=== PATIENT | male | born 1955 | race Caucasian/White ===

== ENCOUNTER 2025-03-20 08:45 | Day surgery (SDC) | payer MEDICARE, MEDICAID, SELFPAY ==
[2025-03-20] VITALS (9 sets, daily range): BP systolic 102–161; BP diastolic 66–88; PULSE 73–78; RESP 16–18; TEMP 36.1–36.3; O2SAT 92–98; BMI 25.9
[2025-03-20] MEDS: Lactated Ringers 1,000 ML 15 ML IV (09:00)
[2025-03-20 09:40] LABS: Bedside Glucose 168 mg/dL (74-106)
--- NOTE | 2025-03-20 09:40 | PCM.HP.STD ---
HPI - General General Date of Admission: 03/20/25 Date of Service: 03/20/25 Chief Complaint: Black stools and need for screening colonoscopy HPI Narrative MARY RIZZO, is a 69 M who presents with the Chief Complaint: black stools and need for screening colonoscopy. Pt resides in a SNF and is brought in with his aide today. He is an unreliable historian and his aide does not know much about his past medical history. Pt tells me that he has black stools. Pt endorses abdominal pain, n/v, and heartburn. His last colonoscopy was in 2012. [facility] Medical History Schizophrenia Dementia Alcohol use Insulin dependent diabetes mellitus Diabetes Anemia Hepatitis TIA (transient ischemic attack) Former smoker Hypertension History of CHF (congestive heart failure) Encounter for screening colonoscopy Home Medications ?Medication ?Instructions ?Recorded ?Last Taken ?Type acetaminophen 325 mg capsule 650 mg PO Q6H PRN pain 11/19/24 Unknown History atorvastatin 10 mg tablet 10 mg PO QHS 11/19/24 Unknown History canagliflozin 100 mg tablet 100 mg PO DAILY 11/19/24 03/16/25 History (Invokana) cholecalciferol (vitamin D3) 125 125 mcg PO DAILY 11/19/24 Unknown History mcg (5,000 unit) tablet (Vitamin D3) fluoxetine 20 mg capsule (Prozac) 20 mg PO DAILY 11/19/24 Unknown History folic acid 1 mg tablet 1 mg PO DAILY 11/19/24 Unknown History furosemide 40 mg tablet 40 mg PO DAILY 11/19/24 Unknown History insulin glargine 100 unit/mL (3 10 unit subcut QPM 11/19/24 03/19/25 History mL) subcutaneous pen (Lantus Solostar U-100 Insulin) linagliptin 5 mg tablet (Tradjenta) 5 mg PO DAILY 11/19/24 03/16/25 History magnesium oxide 400 mg PO BID 11/19/24 Unknown History metformin 1,000 mg tablet 1,000 mg PO BID 11/19/24 Unknown History metoprolol succinate 25 mg capsule 25 mg PO DAILY 11/19/24 03/20/25 History sprinkle, ext. release 24 hr (Kapspargo Sprinkle) quetiapine 400 mg tablet (Seroquel) 400 mg PO QHS 11/19/24 Unknown History ramelteon 8 mg tablet (Rozerem) 8 mg PO QHS 11/19/24 Unknown History thiamine HCl (vitamin B1) 100 mg 100 mg PO DAILY 11/19/24 Unknown History tablet trazodone 100 mg tablet 100 mg PO QHS 11/19/24 Unknown History buspirone 5 mg tablet 5 mg PO BID 03/19/25 Unknown History losartan 25 mg tablet (Cozaar) 25 mg PO DAILY 03/20/25 03/20/25 History Allergy/AdvReac Type Severity Reaction Status Date / Time No Known Allergies Allergy Verified 03/20/25 09:15 Surgical History History of cholecystectomy History of coronary artery stent placement History of cardiac catheterization Social History Smoking Status: Former smoker ROS Constitutional Constitutional: Denies fatigue, fever(s), poor appetite, weight gain or weight loss Gastrointestinal Gastrointestinal: Denies belching, bloating, change in bowel habits, change in stool character, chewing difficulty, coffee ground emesis, constipation, cramping, diarrhea, dyspepsia, dysphagia, early satiety, excessive flatus, fecal incontinence, heartburn, hematemesis, hematochezia, hemorrhoids, loose stools, melena, nausea, odynophagia, rectal bleeding, tenesmus, vomiting or weight changes Vital Signs Vital Signs Vital Signs: 03/20/25 09:19 03/20/25 09:19 Temperature 97.0 F L Temperature Source Temporal Pulse Rate 74 Respiratory Rate 18 Respiratory Pattern Normal Blood Pressure 161/88 H Blood Pressure Mean 112 Blood Pressure Source Monitor Blood Pressure Position Semi-Fowlers Blood Pressure Location Left Arm Pulse Ox 98 Oxygen Delivery Method Room Air Weight Weight: 186 lb Body Mass Index (BMI) 25.9 Physical Exam Const alert, oriented x3, no apparent distress and healthy appearing General Appearance: cooperative GI normal to inspection, nondistended, normoactive bowel sounds, soft to palpation, non-tender and non-distended Percussion: normal to percussion Rectal Exam: deferred Assessment & Plan Assessment/Plan (1) Screening for colon cancer: (2) Melena: PLAN: Assessment and Plan Assessment and Plan (1) Screening for colon cancer: Status: Acute Plan: This is a 68 yo male pt here today for evaluation. Pt is an unreliable historian and it is unclear if he is having any GI symptoms. The skilled nursing made his appointment today for a screening colonoscopy since his last one was in 2012. He tells me he has black stools. He will undergo colonoscopy and EGD since he endorses black stools. Pt brother will be called to discuss this plan. -Colonoscopy and EGD - Will discuss plan with pt brother -f/u after procedures
--- NOTE | 2025-03-20 09:49 | PRE.ANES_ITS ---
ASA Classification* ASA Classification ASA Classification: 3 Assessment & Plan Anesthesia* Anesthesia Assessment Anesthesia Assessment: Discussed sedation and/or anesthesia options, risks, benefits, and alternatives with patient/parents/legal guardian/POA. Questions invited. The patient/parents/legal guardian/POA seems to understand and agrees to proceed with anesthesia plan. Reviewed the physical assessment, medical history, allergy history and patient home medications list prior to surgery/procedure/anesthetic and documented any changes. Performed airway and anesthesia risk assessments. Anesthesia Type Anesthesia Type: MAC History Source History Obtained from:: Patient and Chart Anesthesia Focused Assessment* Temperature: 97.0 F Pulse Rate: 74 Blood Pressure: 161/88 Respiratory Rate: 18 Pulse Ox: 98 Oxygen Delivery Method: Room Air Airway Assessment Mouth opens: >3 cm Mallampati Score: III Teeth Condition: Chipped/Broken (Patient has a cracked tooth.) and Partial (It is out.) Neck Range of motion (ROM): Limited ROM (Slight decrease in extension.) Labs Anesthesia Preop lab: CBC CHEMISTRY POC Glucose 168 mg/dL (74-106) H 03/20/25 09:21 03/20/25 COAG Pre-Assessment Diagnosis/Proposed Procedure Planned Operative Procedure(s): EGD, CSCOPE Anesthesia History Anesthesia History - 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 When Was Last Pacemaker Check QUESTION #4 FULL TEXT: You/Your Family Experience fever (hyperthermia) with Anesthesia Last Oral Intake Last Oral intake: Last Oral Intake NPO since 00:00 03/20/25 09:19 Meds taken in AM with sips of Yes 03/20/25 09:19 water? Meds patient instructed to take am of surgery Any additional information?: Yes Meds taken in AM with sips of water?: Yes PONV PONV - assembler production line: PONV - assembler production line Female No 03/19/25 12:50 HX of Motion Sickness No 03/19/25 12:50 HX of N/V After Surgery No 03/19/25 12:50 Non-Smoker Yes 03/19/25 12:50 Duration of Surgery greater No 03/19/25 12:50 than 60 minutes Number of Risk Factors 1 03/19/25 12:50 PONV Score Low Risk 03/19/25 12:50 Height & Weight Height & Weight: Anesthesia: Height & Weight Height 5 ft 11 in 03/20/25 09:19 Weight: 84.368 kg 03/20/25 09:19 Body Mass Index (BMI) 25.9 03/20/25 09:19 Respiratory Assessment Respiratory Assessment - assembler production line: Respiratory Tract Infection Hx - assembler production line Hx Respiratory Tract Infection No 03/19/25 12:50 STOP Sleep Apnea STOP Sleep Apnea - assembler production line: STOP Sleep Apnea - assembler production line Hx Hypertension Yes 03/19/25 12:50 Hx Sleep Apnea No 03/19/25 12:50 CPAP BIPAP Do you snore loudly (louder No 03/19/25 12:50 than talking or can be heard Do you often feel tired/ Yes 03/19/25 12:50 fatigued/ sleepy during daytime? Has anyone observed you stop No 03/19/25 12:50 breathing during sleep? STOP Results Positive 03/19/25 12:50 QUESTION #5 FULL TEXT : Do you snore loudly (louder than talking or can be heard through closed doors)? 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 Specify any problems Hx of Preganancy in last 3 N/A 03/19/25 12:50 Months Nurse Filling Out Transfusion MGRIFFITH 03/19/25 12:50 & Questions: Date: 03/19/25 03/19/25 12:50 Time: 12:50 03/19/25 12:50 Patient unable to answer at this time (ie. confused, unrespo /Reproduction History /Reproductive History - assembler production line: /Reproductive Hx- assembler production line Hx Now No 03/19/25 12:50 Gestational Age (in weeks): EDC: Hx Hx Para Hx Section SAB No 03/19/25 12:50 Active Medications Active Medications: Current Medications Generic Name Dose Route Start Last Admin Trade Name Freq PRN Reason Stop Dose Admin Lactated Ringer's 1,000 mls @ 15 mls/hr 03/20/25 09:00 03/20/25 09:00 IV 15 mls/hr .Q48H RHEA Administration PFSH Medical History Schizophrenia Dementia Alcohol use Insulin dependent diabetes mellitus Diabetes Anemia Hepatitis TIA (transient ischemic attack) Former smoker Hypertension History of CHF (congestive heart failure) Encounter for screening colonoscopy Home Medications ?Medication ?Instructions ?Recorded ?Last Taken ?Type acetaminophen 325 mg capsule 650 mg PO Q6H PRN pain Unknown History atorvastatin 10 mg tablet 10 mg PO QHS 11/19/24 Unknow n History canagliflozin 100 mg tablet 100 mg PO DAILY 11/19/24 0 03/16/25 History (Invokana) cholecalciferol (vitamin D3) 125 125 mcg PO DAILY 11/01 06/25 Unknown History mcg (5,000 unit) tablet (Vitamin D3) fluoxetine 20 mg capsule (Prozac) 20 mg PO DAILY 11/19 Unknown History folic acid 1 mg tablet 1 mg PO DAILY 11/19/24 Unkno wn History furosemide 40 mg tablet 40 mg PO DAILY 11/19/24 Unkn own History insulin glargine 100 unit/mL (3 10 unit subcut QPM 03/19/25 History mL) subcutaneous pen (Lantus Solostar U-100 Insulin) linagliptin 5 mg tablet (Tradjenta) 5 mg PO DAILY 11/0103/16/25 History magnesium oxide 400 mg PO BID 11/19/24 Unkno wn History metformin 1,000 mg tablet 1,000 mg PO BID 11/19/24 Unk nown History metoprolol succinate 25 mg capsule 25 mg PO DAILY 11/0103/20/25 History sprinkle, ext. release 24 hr (Kapspargo Sprinkle) quetiapine 400 mg tablet (Seroquel) 400 mg PO QHS 11/01 06/25 Unknown History ramelteon 8 mg tablet (Rozerem) 8 mg PO QHS 11/19/24 U nknown History thiamine HCl (vitamin B1) 100 mg 100 mg PO DAILY 11/19 Unknown History tablet trazodone 100 mg tablet 100 mg PO QHS 11/19/24 Unkno wn History buspirone 5 mg tablet 5 mg PO BID 03/19/25 Unknown History losartan 25 mg tablet (Cozaar) 25 mg PO DAILY 03/20/25 03/20/25 History Allergy/AdvReac Type Severity Reaction Status Date / Time Penicillins Allergy Intermediate Rash Verified 03/20/25 09:54 Sulfa (Sulfonamide Allergy PT UNSURE Verified 03/20/25 09:54 Antibiotics) (sulfa drugs) OF REACTION Surgical History History of cholecystectomy History of coronary artery stent placement History of cardiac catheterization Social History Smoking Status: Former smoker Review of Systems (Anesthesia) ROS Narrative System reviewed and no additional complaints, except as documented.
--- NOTE | 2025-03-20 10:15 | EGD_PTH ---
PATIENT: MARY RIZZO LOC: [facility] U#:[id number] AGE/SX: 69/M ROOM: RE03/20/[address]: Dr. Nilesh Pelaez DO : 1955 BED: DIS: 03/20/2025 SPEC #: [id number] RECD: 03/20/25 13:59 STATUS: CRISTIANO RECandelaria #: [id number] CHRISTIN: 03/20/25 10:[address]: Nilesh Pelaez DEPT: SURGICAL PATHOLOGY RECD BY: [place] ENTERED: 03/20/25 15:14 SP TYPE: EGD BIOPSY AGAPITO DR: Dr. Miranda Griffin MD Tissues: A - Gastric mucous membrane B - Gastric mucous membrane C - Esophagus, NOS D - COLON BIOPSY E - Cecum, NOS Procedures: Surgery Specimen Level IV HEADER OPERATION: Colonoscopy, EGD, polypectomy PRE-OP DIAGNOSIS: Screening for colon cancer, melena TISSUE SUBMITTED: A- Gastric antrum biopsy, B- Gastric body biopsy, C- Distal esophagus biopsy, D- Hepatic flexure polyps, E- Cecal mass MICROSCOPIC DIAGNOSIS A. Stomach, gastric antrum, biopsies: - Ooxyntic mucosa with slight chronic inflammation - No Helicobacter pylori-like organisms are identified in these H & E stained sections B. Stomach, gastric body: - Fundic with slight chronic inflammation and focal atrophic features - No Helicobacter pylori-like organisms are identified in these H & E stained sections C. Esophagus, distal: * Benign squamous epithelium * Oxynto-cardiac mucosa with chronic inflammation * No goblet cell metaplasia is identified D. Large intestine, hepatic flexure polyps: * Tubulovillous adenoma E. Large intestine, cecal mass: * Tubulovillous adenoma with focal high grade dysplasia MICROSCOPIC DESCRIPTION Slides are reviewed. GROSS DESCRIPTION A. Received in fixative in one container labeled with the patient's name and designated Gastric antrum biopsy. The specimen consists of three irregular fragments of light wilcox soft tissue that in aggregate measure <0.1 to 0.6 cm. The specimen is totally submitted in one cassette. B. Received in fixative in one container labeled with the patient's name and designated Gastric body biopsy. The specimen consists of three irregular fragments of light wilcox soft tissue that in aggregate measure 0.4 to 0.7 cm. The specimen is totally submitted in one cassette. C. Received in fixative in one container labeled with the patient's name and designated Distal esophagus biopsy. The specimen consists of three irregular fragments of light wilcox soft tissue that in aggregate measure 0.3 to 0.6 cm. The specimen is totally submitted in one cassette. D. Received in fixative in one container labeled with the patient's name and designated Hepatic flexure polyps. The specimen consists of multiple irregular fragments of light wilcox soft tissue that in aggregate measure 2.5 x 1 x 0.5 cm. The specimen is totally submitted in one cassette. E. Received in fixative in one container labeled with the patient's name and designated Cecal mass. The specimen consists of a 3.6 x 3.3 x 1.9 cm aggregate of wilcox-red, friable tissue fragments. The larger fragments are sectioned. Entirely submitted in 7 cassettes. MICKY. 03/20/2025 CPT:65307p0
--- NOTE | 2025-03-20 11:43 | OP.EGD_ITS ---
Patient Name: Yogesh Rodriguez Procedure Date: 03/20/2025 9:44 AM Date of : 1955 Age: 69 Procedure: Upper GI endoscopy Indications: Epigastric abdominal pain, Iron deficiency anemia, Functional Dyspepsia, Heartburn Providers: Nilesh Pelaez DO Referring MD: Miranda Griffin Medicines: Monitored Anesthesia Care Patient Profile: This is a 69 year old male. Refer to note in patient chart for documentation of history and physical. Patient has symptoms of chronic abdominal cramping, acute epigastric abdominal pain and chronic dyspepsia. Complications: No immediate complications. Procedure: Pre-Anesthesia Assessment: - Prior to the procedure, a History and Physical was performed, and patient medications and allergies were reviewed. The patient is competent. The risks and benefits of the procedure and the sedation options and risks were discussed with the patient. All questions were answered and informed consent was obtained. Patient identification and proposed procedure were verified by the physician in the pre-procedure area. Mental Status Examination: alert and oriented. Airway Examination: normal oropharyngeal airway and neck mobility. Respiratory Examination: clear to auscultation. CV Examination: normal. Prophylactic Antibiotics: The patient does not require prophylactic antibiotics. Prior Anticoagulants: The patient has taken no anticoagulant or antiplatelet agents. ASA Grade Assessment: II - A patient with mild systemic disease. After reviewing the risks and benefits, the patient was deemed in satisfactory condition to undergo the procedure. The anesthesia plan was to use monitored anesthesia care (MAC). Immediately prior to administration of medications, the patient was re-assessed for adequacy to receive sedatives. The heart rate, respiratory rate, oxygen saturations, blood pressure, adequacy of pulmonary ventilation, and response to care were monitored throughout the procedure. The physical status of the patient was re-assessed after the procedure. After obtaining informed consent, the endoscope was passed under direct vision. Throughout the procedure, the patient's blood pressure, pulse, and oxygen saturations were monitored continuously. The Colonoscope was introduced through the mouth, and advanced to the fourth part of the duodenum. Small bowel enteroscopy was deemed necessary. The upper GI endoscopy was accomplished without difficulty. The patient tolerated the procedure well. Scope In: 10:08:46 AM Scope Out: 10:13:32 AM Total Procedure Duration Time 0 hours 4 minutes 46 seconds Findings: LA Grade A (one or more mucosal breaks less than 5 mm, not extending between tops of 2 mucosal folds) esophagitis with no bleeding was found 36 to 38 cm from the incisors. Biopsies were taken with a cold forceps for histology. Verification of patient identification for the specimen was done. Estimated blood loss was minimal. A small hiatal hernia was present. Patchy mildly erythematous mucosa without bleeding was found in the gastric body. Biopsies were taken with a cold forceps for histology. Verification of patient identification for the specimen was done. Estimated blood loss was minimal. Biopsies were taken with a cold forceps for Helicobacter pylori testing. Verification of patient identification for the specimen was done. Estimated blood loss was minimal. Patchy mildly erythematous mucosa without active bleeding and with no stigmata of bleeding was found in the entire duodenum. Two non-bleeding linear gastric ulcers with no stigmata of bleeding were found in the gastric body. The largest lesion was 6 mm in largest dimension. Impression: - LA Grade A reflux esophagitis with no bleeding. Biopsied. - Small hiatal hernia. - Erythematous mucosa in the gastric body. Biopsied. - Erythematous duodenopathy. Recommendation: - Discharge patient to home. - Resume previous diet. - Continue present medications. - Await pathology results. Procedure Code(s): --- Professional --- 92736, Small intestinal endoscopy, enteroscopy beyond second portion of duodenum, not including ileum; with biopsy, single or multiple CPT copyright 2021 [employer]. All rights reserved. The codes documented in this report are preliminary and upon skein washer review may be revised to meet current compliance requirements. Nilesh Pelaez DO 03/20/2025 11:42:44 AM This report has been signed electronically. Number of Addenda: 0 Note Initiated On: 03/20/2025 9:44 AM
--- NOTE | 2025-03-20 11:43 | OP.CCLET_ITS ---
03/20/2025 Miranda Griffin [address] [place] [address] Re : Upper GI endoscopy procedure for Yogesh Rodriguez Dear Dr. Griffin This procedure was performed on Thursday, March 20, 2025. My impressions and recommendations are as follows: Impressions : - LA Grade A reflux esophagitis with no bleeding. Biopsied. - Small hiatal hernia. - Erythematous mucosa in the gastric body. Biopsied. - Erythematous duodenopathy. Recommendations : - Discharge patient to home. - Resume previous diet. - Continue present medications. - Await pathology results. My findings are described in the full procedure note, which is enclosed. If I can be of further assistance, please feel free to contact me at . Sincerely, Nilesh Pelaez DO 03/20/2025 11:42:44 AM This report has been signed electronically.
--- NOTE | 2025-03-20 11:43 | PCM.POST.ANE ---
Anesthesia: Postop Eval I Current Vital Signs Temperature: 97.3 F Pulse Rate: 73 Blood Pressure: 112/69 Respiratory Rate: 16 Pulse Ox: 94 Oxygen Delivery Method: Room Air Assessment Airway patent: Yes Spontaneous unlabored respirations: Yes Mental status: Awake and Calm nausea: No Vomiting: No Anesthesia Complication: No Fluid Hydration Crystalloid volume administer (ml): 900 Total IV fluid infused: 900 Progress Note Anesthesia document: Postop Eval 1 completed: Yes
--- NOTE | 2025-03-20 11:48 | OP.CCLET_ITS ---
03/20/2025 Miranda Griffin [address] [place] [address] Re : Colonoscopy procedure for Yogesh Rodriguez Dear Dr. Griffin This procedure was performed on Thursday, March 20, 2025. My impressions and recommendations are as follows: Impressions : - Ten 1 to 2 mm polyps at the hepatic flexure and in the ascending colon, removed piecemeal using a hot snare. Resected and retrieved. 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 Tissue was removed. Biopsied. Tattooed. - Three 1 to 2 mm polyps in the sigmoid colon and in the descending colon. Resection not attempted. Recommendations : - Repeat colonoscopy for surveillance after piecemeal polypectomy. - Continue present medications. My findings are described in the full procedure note, which is enclosed. If I can be of further assistance, please feel free to contact me at . Sincerely, Nilesh Pelaez, 03/20/2025 11:47:41 AM This report has been signed electronically.
--- NOTE | 2025-03-20 11:48 | OP.COLON_ITS ---
Patient Name: Yogesh Rodriguez Procedure Date: 03/20/2025 10:13 AM Date of : 1955 Age: 69 Procedure: Colonoscopy Indications: Screening for colorectal malignant neoplasm Providers: Nilesh Pelaez DO Referring MD: Miranda Griffin Medicines: Monitored Anesthesia Care Patient Profile: This is a 69 year old male. Refer to note in patient chart for documentation of history and physical. Patient has symptoms of chronic abdominal cramping, acute epigastric abdominal pain and chronic dyspepsia. Last Colonoscopy: date unknown. Unable to locate last colonoscopy report. Complications: No immediate complications. Procedure: Pre-Anesthesia Assessment: - Prior to the procedure, a History and Physical was performed, and patient medications and allergies were reviewed. The patient is competent. The risks and benefits of the procedure and the sedation options and risks were discussed with the patient. All questions were answered and informed consent was obtained. Patient identification and proposed procedure were verified by the physician in the pre-procedure area. Mental Status Examination: alert and oriented. Airway Examination: normal oropharyngeal airway and neck mobility. Respiratory Examination: clear to auscultation. CV Examination: normal. Prophylactic Antibiotics: The patient does not require prophylactic antibiotics. Prior Anticoagulants: The patient has taken no anticoagulant or antiplatelet agents. ASA Grade Assessment: II - A patient with mild systemic disease. After reviewing the risks and benefits, the patient was deemed in satisfactory condition to undergo the procedure. The anesthesia plan was to use monitored anesthesia care (MAC). Immediately prior to administration of medications, the patient was re-assessed for adequacy to receive sedatives. The heart rate, respiratory rate, oxygen saturations, blood pressure, adequacy of pulmonary ventilation, and response to care were monitored throughout the procedure. The physical status of the patient was re-assessed after the procedure. After I obtained informed consent, the scope was passed under direct vision. Throughout the procedure, the patient's blood pressure, pulse, and oxygen saturations were monitored continuously. The Colonoscope was introduced through the anus and advanced to the cecum, identified by appendiceal orifice and ileocecal valve. The colonoscopy was performed without difficulty. The patient tolerated the procedure well. The quality of the bowel preparation was good. Scope In: 10:15:00 AM Scope Withdrawal Time 1 hour 6 minutes 35 seconds Scope Out: 11:32:55 AM Total Procedure Duration Time 1 hour 17 minutes 55 seconds Findings: The perianal and digital rectal examinations were normal. Ten sessile polyps were found in the hepatic flexure and ascending colon. The polyps were 1 to 2 mm in size. These polyps were removed with a piecemeal technique using a hot snare. Resection and retrieval were complete. Verification of patient identification for the specimen was done. Estimated blood loss was minimal. A frond-like/villous partially obstructing large mass was found in the cecum. The mass was non-circumferential. The mass measured five cm in length. In addition, its diameter measured twenty mm. Oozing was present. This was biopsied with a cold forceps for histology. Verification of patient identification for the specimen was done. Area was tattooed with an injection of 1 mL of Tabitha ink. The polyp was removed with a hot snare. Polyp resection was incomplete. The resected tissue was retrieved. Verification of patient identification for the specimen was done. Estimated blood loss was minimal. Three sessile polyps were found in the sigmoid colon and descending colon. The polyps were 1 to 2 mm in size. Polypectomy was not attempted. Impression: - Ten 1 to 2 mm polyps at the hepatic flexure and in the ascending colon, removed piecemeal using a hot snare. Resected and retrieved. 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 Tissue was removed. Biopsied. Tattooed. - Three 1 to 2 mm polyps in the sigmoid colon and in the descending colon. Resection not attempted. Recommendation: - Repeat colonoscopy for surveillance after piecemeal polypectomy. - Continue present medications. Procedure Code(s): --- Professional --- 63747, Colonoscopy, flexible; with removal of tumor(s), polyp(s), or other lesion(s) by snare technique 65130, Colonoscopy, flexible; with directed submucosal injection(s), any substance CPT copyright 2021 [employer]. All rights reserved. The codes documented in this report are preliminary and upon clinical coder review may be revised to meet current compliance requirements. Nilesh Pelaez DO 03/20/2025 11:47:41 AM This report has been signed electronically. Number of Addenda: 0 Note Initiated On: 03/20/2025 10:13 AM
--- NOTE | 2025-03-20 15:44 | POSTOPAN2_ITS ---
Anesthesia Postop Eval I Sum Postop Eval Completion status Anesthesia document: Postop Eval 1 completed: Yes Anesthesia Postop Eval I Summary Anesthesia Postop Eval I Summary: Anesthesia Postop Eval I: Assessment Summary Airway patent Yes 03/20/25 11:44 [email or web address] Spontaneous unlabored Yes 03/20/25 11:44 [email or web address] respirations Mental status Awake,Calm 03/20/25 11:44 [email or web address] nausea No 03/20/25 11:44 [email or web address] Vomiting No 03/20/25 11:44 [email or web address] Anesthesia Postop Eval I: Fluid Summary Crystalloid volume administer 900 03/20/25 11:44 [email or web address] (ml) Colloids volume administered ( ml) Blood Product volume administered (ml) Total IV fluid infused 900 03/20/25 11:44 [email or web address] Anesthesia Postop Eval I: Summary Notes Anesthesia Complication No 03/20/25 11:44 [email or web address] Anesthesia Complication Comment: Post-operative progress note Anesthesia: Postop Eval II Evaluation Mental status: Awake Pain Level: 0 nausea: No Vomiting: No
--- NOTE | 2025-03-20 15:44 | PCM.POSTANE2 ---
Anesthesia Postop Eval I Sum Postop Eval Completion status Anesthesia document: Postop Eval 1 completed: Yes Anesthesia Postop Eval I Summary Anesthesia Postop Eval I Summary: Anesthesia Postop Eval I: Assessment Summary Airway patent Yes 03/20/25 11:44 [email or web address] Spontaneous unlabored Yes 03/20/25 11:44 [email or web address] respirations Mental status Awake,Calm 03/20/25 11:44 [email or web address] nausea No 03/20/25 11:44 [email or web address] Vomiting No 03/20/25 11:44 [email or web address] Anesthesia Postop Eval I: Fluid Summary Crystalloid volume administer 900 03/20/25 11:44 [email or web address] (ml) Colloids volume administered ( ml) Blood Product volume administered (ml) Total IV fluid infused 900 03/20/25 11:44 [email or web address] Anesthesia Postop Eval I: Summary Notes Anesthesia Complication No 03/20/25 11:44 [email or web address] Anesthesia Complication Comment: Post-operative progress note Anesthesia: Postop Eval II Evaluation Mental status: Awake Pain Level: 0 nausea: No Vomiting: No
== END 2025-03-20 12:33 | disposition home or self-care (01) ==
LOC: EN 08:52 → AC 08:52
PROVIDERS: PCP Internal Medicine Infectious Disease; Referring Provider Internal Medicine Infectious Disease; Visit Provider Internal Medicine Gastroenterology
PROC: 0DJD8ZZ Inspection of Lower Intestinal Tract, Via Natural or Artificial Opening Endoscopic (ICD-10-PCS; CPT 45378; principal; 2025-03-20 10:10)
DX: Z12.11 Encounter for screening for malignant neoplasm of colon (principal); I11.0 Hypertensive heart disease with heart failure; I50.9 Heart failure, unspecified; F03.90 Unspecified dementia, unspecified severity, without behavioral disturbance, psychotic disturbance, mood disturbance, and anxiety; E11.9 Type 2 diabetes mellitus without complications; Z79.4 Long term (current) use of insulin; K44.9 Diaphragmatic hernia without obstruction or gangrene; D50.9 Iron deficiency anemia, unspecified; K21.00 Gastro-esophageal reflux disease with esophagitis, without bleeding; Z87.891 Personal history of nicotine dependence; K63.5 Polyp of colon; Z79.899 Other long term (current) drug therapy; K29.50 Unspecified chronic gastritis without bleeding; D12.3 Benign neoplasm of transverse colon; D12.0 Benign neoplasm of cecum
CPT/HCPCS: 45380; 45381; 45385; 43239; 82962; 88305; C1889; A4648; J2405